=== PATIENT | female | born 1990 | race Two or more races ===

== ENCOUNTER 2025-04-29 13:25 | Emergency (ER) | payer MEDICAID ==
[~2025-04-29] VITALS: Ht 167.6 cm; Wt 95.0 kg
[~2025-04-29 13:25] MED LIST: METO5TAB67 PO; NITR-87 PO
--- NOTE | 2025-04-29 13:41 | ED.PDOC ---
HPI (NEURO) HPI Comments 35 y.o female who is 12 weeks gestation, presents to the ED via EMS for a chief complaint of a generalized headache radiating to her right eye that has been ongoing for the past 3 weeks. Patient went to a take a nap today and when she woke up, felt her right arm go numb. Patient reports she called her [facility] Dr. Self but was not in office so she called [facility] and the medical staff online called 911. Patient complains of nausea and vomiting x 1.5 months with no active symptoms at this time. Patient denies recent head injuries, fever, chills, change of vision, slurred speech, focal deficits, chest pain or SOB. She denies any alcohol, tobacco or substance use at this time. Time Seen by MD: 13:25 Primary Care Provider: ROSIE Fulton Notes: Nurses Notes, Senior Mainframe Developer Notes, Medications, Allergies Information Source: Patient, Emergency Med Personnel Severity: Moderate Headache Severity: Moderate Timing: Weeks (3) Duration: Since onset Prehospital treatment: 12 Lead EKG, Accucheck (94), Stained Glass Artist Headache Quality: Sharp Headache Location: Generalized Numbness Location: (R) Arm Onset: At rest Circumstances: Spontaneous Symptoms: Numbness History of: None Modifying factors: Nothing Associated Signs and Symptoms: Headache, Nausea, Vomiting, Numbness Past Medical History PAST MEDICAL HISTORY: Denies Surgical History: Cholecystectomy Surgical History (Other): Left ankle CHEMICAL BLENDER History: No Pertinent CHEMICAL BLENDER History Family History Family History: Family hx of DM Social History Smoker: Non-Smoker Alcohol: Denies ETOH Use Drugs: Denies Drug Use Lives In: Home Constitutional: denies: chills, diaphoresis, fatigue, fever, malaise, sweats, weakness, others EENTM: denies: blurred vision, double vision, ear bleeding, ear discharge, ear drainage, ear pain, ear ringing, eye pain, eye redness, hearing loss, mouth pain, mouth swelling, nasal discharge, nose bleeding, nose congestion, nose pain, photophobia, tearing, throat pain, throat swelling, voice changes, others Respiratory: denies: cough, hemoptysis, orthopnea, SOB at rest, shortness of breath, SOB with excertion, stridor, wheezing, others Cardiovascular: denies: chest pain, dizzy spells, diaphoresis, Dyspnea on exertion, edema, irregular heart beat, left arm pain, lightheadedness, palpitations, PND, syncope, others Gastrointestinal: reports: nausea, vomiting; denies: abdomen distended, abdominal pain, blood streaked bowels, constipated, diarrhea, dysphagia, difficulty swallowing, hematemesis, melena, poor appetite, poor fluid intake, rectal bleeding, rectal pain, others Genitourinary: reports: ; denies: abnormal vagina bleeding, burning, dyspareunia, dysuria, flank pain, frequency, hematuria, incontinence, pain, vagina discharge, urgency, others Neurological: reports: headache, numbness (Right arm ); denies: dizziness, fainting, left sided numbness, left sided weakness, paresthesia, pre-existing deficit, right sided numbness, right sided weakness, seizure, speech problems, tingling, tremors, weakness, others Musculoskeletal: denies: back pain, gout, joint pain, joint swelling, muscle pain, muscle stiffness, neck pain, others Integumetry: denies: bruises, change in color, change in hair/nails, dryness, laceration, lesions, lumps, rash, wounds, others Allergic/Immunocompromised: denies: Difficulty Healing, Frequent Infections, Hives, Itching, others Hematologic/Lymphatic: denies: anemia, blood clots, easy bleeding, easy bruising, swollen glands, others Endocrine: denies: excessive hunger, excessive sweating, excessive thirst, excessive urination, flushing, intolerance to cold, intolerance to heat, unexplained weight gain, unexplained weight loss, others Psychiatric: denies: anxiety, bipolar disorder, depression, hopeless, panic disorder, schizophrenia, sleepless, suicidal, others All Other Systems: Reviewed and Negative Physical Exam General Appearance: Mild Distress HEENT: Normal ENT Inspection, Pharynx Normal, TMs Normal Neck: Full Range of Motion, Non-Tender, Normal, Normal Inspection Respiratory: Chest Non-Tender, Lungs Clear, No Accessory Muscle Use, No Respiratory Distress, Normal Breath Sounds Cardiovascular: No Edema, No JVD, No Murmur, No Gallop, Normal Peripheral Pulses, Regular Rate/Rhythm Breast Exam: Deferred Gastrointestinal: No Organomegaly, No Pulsatile Mass, Normal Bowel Sounds, Soft, Suprapubic, Tenderness Genitalia: Deferred Pelvic: Deferred Rectal: Deferred Extremities: No calf tenderness, Normal capillary refill, Normal inspection, Normal range of motion, Non-tender, No pedal edema Musculoskeletal : Apperance: Normal Neurologic: Alert, cognos developer II-XII nml as Tested, No Motor Deficits, Normal Affect, Normal Mood, No Sensory Deficits Cerebellar Function: Normal Reflexes: Normal Skin: Dry, Normal Color, Warm Lymphatic: No Adenopathy Was a procedure done? Was a procedure done?: No Differential Diagnosis (SZ) Seizure: N/A General Weakness: Dehydration, Electrolyte imbalance Headache: Cluster, Migraine, Subarachnoid Hemorrhage X-Ray, Labs, Meds, VS Vital Signs Date Time Temp Pulse Resp B/P (MAP) Pulse Ox O2 Delivery O2 Flow Rate FiO2 04/29/25 15:34 97.5 70 18 138/75 (96) 97 97.5 04/29/25 14:11 98.2 77 20 117/66 (83) 98 98.2 Lab Test 04/29/25 15:46 04/29/25 13:50 Range/Units Urine Color Yellow Yellow Urine Clarity Clear Clear Urine pH 6.0 5.0-9.0 Urine Specific [place] 1.023 1.001-1.035 Urine Protein Negative Negative Urine Ketones Negative Negative Urine Blood Trace H Negative /uL Urine Nitrite Negative Negative Urine Bilirubin Negative Negative Urine Urobilinogen Normal Negative mg/dL Urine Leukocyte Esterase 3+ Negative /uL Urine RBC 9 0 - 4 /hpf Urine Microscopic WBC 10 H 0-5 /HPF Urine Squamous Epithelial Cells Few <5 /hpf Urine Bacteria Few H None Seen /hpf Urine Mucus Few None Seen Urine Glucose Normal Normal mg/dL White Blood Count 11.3 H 4.4-10.8 10^3/uL Red Blood Count 4.48 4.0-5.20 10^6/uL Hemoglobin 13.8 12.2-16.2 g/dL Hematocrit 39.3 36.0-46.0 % Mean Corpuscular Volume 87.7 80.0-100.0 fL Mean Corpuscular Hemoglobin 30.7 28.0-32.0 pg Mean Corpuscular Hemoglobin Concent 35.0 32.0-36.0 g/dL Red Cell Distribution Width 13.9 11.8-14.3 % Platelet Count 357 140-450 10^3/uL Mean Platelet Volume 7.2 6.9-10.8 fL Neutrophils (%) (Auto) 78.3 37.0-80.0 % Lymphocytes (%) (Auto) 15.3 10.0-50.0 % Monocytes (%) (Auto) 5.6 0.0-12.0 % Eosinophils (%) (Auto) 0.5 0.0-7.0 % Basophils (%) (Auto) 0.3 0.0-2.0 % Neutrophils # (Auto) 8.8 H 1.6-8.6 10 ^3/uL Lymphocytes # (Auto) 1.7 0.4-5.4 10 ^3/uL Monocytes # (Auto) 0.6 0-1.3 10 ^3/uL Eosinophils # (Auto) 0.1 0-0.8 10 ^3/uL Basophils # (Auto) 0 0-0.2 10 ^3/uL Nucleated Red Blood Cells 0.0 % Sodium Level 139 136-145 mmol/L Potassium Level 3.4 L 3.5-5.1 mmol/L Chloride Level 106 98-107 mmol/L Carbon Dioxide Level 25 20-31 mmol/L Anion Gap 8 5-15 Blood Urea Nitrogen 7 L 9-23 mg/dL Creatinine 0.47 L 0.550-1.02 mg/dL Glomerular Filtration Rate Calc 129 >90 mL/min BUN/Creatinine Ratio 14.9 10.0-20.0 Serum Glucose 78 74-106 mg/dL Calcium Level 9.4 8.7-10.4 mg/dL Time of 1ST Reevaluation: 13:35 Reevaluation 1ST: Unchanged Patient Education/Counseling: Diagnosis, Treatment, Prognosis, Need For Follow Up Family Education/Counseling: No Family Present Departure 1 Departure Time of Disposition: 16:36 Impression: Primary Impression: Hyperemesis gravidarum Additional Impression: UTI (urinary tract infection) Qualified Codes: N30.00 - Acute cystitis without hematuria Disposition: 01 HOME / SELF CARE / HOMELESS Condition: Fair e-Prescriptions Nitrofurantoin Monohydrate Mac (Macrobid) 100 Mg Cap 100 MG PO BID for 5 Days, #10 CAP Prov: AMALIA THOMAS MD 04/29/25 Metoclopramide Hcl (Reglan) 5 Mg Tab 5 MG PO Q12HP PRN for 7 Days, #14 TAB Prov: AMALIA THOMAS MD 04/29/25 Discharged With: Self Critical Care Note Critical Care Time?: No Stability Stability form required: No I personally scribed for AMALIA THOMAS MD ([email or web address]) on 04/29/25 at 13:41. Electronically submitted by Francy Lamas ([facility]). AMALIA THOMAS MD Apr 29, 2025 13:41
[2025-04-29 14:07] LABS: Hematocrit 39.3 % (36.0-46.0); Hemoglobin 13.8 g/dL (12.2-16.2); Mean Corpuscular Hemoglobin 30.7 pg (28.0-32.0); Mean Corpuscular Volume 87.7 fL (80.0-100.0); Nucleated Red Blood Cells % 0.0 %
[2025-04-29 14:13] LABS: Chloride 106 mmol/L (98-107); Sodium 139 mmol/L (136-145)
[2025-04-29 14:14] LABS: Anion Gap 8 (5-15); Calcium 9.4 mg/dL (8.7-10.4); Carbon Dioxide 25 mmol/L (20-31)
[2025-04-29 14:19] LABS: BUN/Creatinine Ratio 14.9 (10.0-20.0); Glucose 78 mg/dL (74-106)
[2025-04-29 14:20] LABS: Blood Urea Nitrogen 7 mg/dL (9-23); Potassium 3.4 mmol/L (3.5-5.1)
[2025-04-29 15:34] VITALS: BP 138/75; PULSE 70; RESP 18; TEMP 97.5; O2SAT 97
[2025-04-29 15:55] LABS: Urine Protein, UAD Negative (Negative)
[2025-04-29] MEDS ORDERED: SODIUM CHLORIDE 0.9% 1,000 ML IV ONE (16:45)
[2025-04-29] MEDS ORDERED: ONDANSETRON HCL 4 MG/2 ML VIAL IV ONE (16:45)
== END 2025-04-29 17:22 | disposition home or self-care (01) ==
LOC: EDBD 13:25 → ER 13:25
DX: O21.0 Mild hyperemesis gravidarum (principal); O23.41 Unspecified infection of urinary tract in pregnancy, first trimester; N39.0 Urinary tract infection, site not specified; Z90.49 Acquired absence of other specified parts of digestive tract; Z3A.12 12 weeks gestation of pregnancy
CPT/HCPCS: 36415; 80048; 81001; 85025